=== PATIENT | female | born 1970 | race Caucasian/White ===

== ENCOUNTER 2016-07-14 17:19 | Emergency (ER) | payer MEDICAID ==
[~2016-07-14] VITALS: Ht 162.6 cm; Wt 79.8 kg
[2016-07-14 17:23] VITALS: Ht 162.6 cm; Wt 79.8 kg
[2016-07-14 18:40] LABS: URINE BLOOD (Dip) POC Negative (NEGATIVE)
[2016-07-14] MEDS ORDERED: KETOROLAC 30 MG INJ IV STA (18:43)
[2016-07-14 19:00] LABS: ADD SCAN DIFF NO
[2016-07-14 19:03] LABS: BASOPHIL # 0.1 10^3/ul (0.0-0.1); BASOPHILS % 0.6 % (0.0-2.0); EOSINOPHILS # 0.2 10^3/ul (0.0-0.5); EOSINOPHILS % 1.8 % (0.0-7.0); HEMATOCRIT 39.1 % (37.0-47.0); LYMPHOCYTES # 2.4 10^3/ul (0.8-2.9); LYMPHOCYTES % 22.7 % (15.0-51.0); MEAN CORPUSCULAR HEMOGLOBIN 30.3 pg (29.0-33.0); MEAN CORPUSCULAR HGB CONC 33.2 g/dl (32.0-37.0); MEAN CORPUSCULAR VOLUME 91.1 fl (82.0-101.0); MEAN PLATELET VOLUME 10.5 fl (7.4-10.4); MONOCYTE # 0.8 10^3/ul (0.3-0.9); MONOCYTES % 7.3 % (0.0-11.0); NEUTROPHIL # 7.2 10^3/ul (1.6-7.5); NEUTROPHILS % 67.2 % (39.0-77.0); PLATELET COUNT 293 10^3/UL (140-415); RED BLOOD COUNT 4.29 10^6/ul (4.20-5.40); RED CELL DISTRIBUTION WIDTH 13.6 % (11.5-14.5); WHITE BLOOD COUNT 10.6 10^3/ul (4.8-10.8)
[2016-07-14 19:07] LABS: ADD UMIC NO; URINE BILIRUBIN (Dip) NEGATIVE (NEGATIVE); URINE BLOOD (Dip) NEGATIVE (NEGATIVE); URINE COLOR LT. YELLOW (YELLOW); URINE GLUCOSE (Dip) NEGATIVE (NEGATIVE); URINE KETONES (Dip) NEGATIVE (NEGATIVE); URINE LEUKOCYTE ESTERASE (Dip) NEGATIVE (NEGATIVE); URINE NITRITE (Dip) NEGATIVE (NEGATIVE); URINE TOTAL PROTEIN (Dip) NEGATIVE (NEGATIVE); URINE UROBILINOGEN (Dip) 0.2 E.U./dL (0.1-1.0)
[2016-07-14 19:13] LABS: ALBUMIN 4.2 g/dl (3.3-4.9)
[2016-07-14 19:14] LABS: POTASSIUM 3.9 mmol/L (3.5-5.1)
[2016-07-14 19:16] LABS: ALBUMIN/GLOBULIN RATIO 1.16; BILIRUBIN,INDIRECT 0.3 mg/dl (0-1.1); BILIRUBIN,TOTAL 0.3 mg/dl (0.2-1.3); CREATININE 0.6 mg/dl (0.44-1.00); TOTAL PROTEIN 7.8 g/dl (6.1-8.1)
[2016-07-14 19:17] LABS: CALCIUM 8.8 mg/dl (8.4-10.2)
--- NOTE | 2016-07-14 19:31 | RADRPT ---
PROCEDURE: US Pelvis CLINICAL INDICATION: Left pelvic pain TECHNIQUE: Sonographic evaluation of the pelvis was performed utilizing both transabdominal and tr ansvaginal technique. Curved array transabdominal transducer technique as well as a high frequency endovaginal probe was utilized. Images were reviewed on the high-resolution PACS workstation. COMPARISON: No prior studies are available for comparison. FINDINGS: The uterus is normal in size, echogenicity, and morphology measuring about 9.0 x 5.1 x 5.0 cm. The uterus is anteverted in normal position. The endometrium is thin and normal measuring 9 mm in diam eter. The trilaminar stripe of the endometrium is preserved. No uterine myomas are visualized. The bilateral ovaries were not visualized. The bilateral adnexa are unremarkable. There is no signi ficant free fluid in the pelvis. No other incidental abnormality is identified. RPTAT: ZZ IMPRESSION: 1. Unremarkable appearance of the uterus. 2. Non-visualized bilateral ovaries. The bilateral adnexa are unremarkable. .Shira Salas MD, Date Time Electronically viewed and signed by .Shira Salas MD, on 07/14/2016 19:31 .T/
[2016-07-14] MEDS ORDERED: IBUP-1542 PO (20:06)
--- NOTE | 2016-07-15 00:14 | ERD ---
ER Documentation Chief Complaint Date/Time DATE: 07/15/16 TIME: 00:12 Chief Complaint ap x 3 days HPI 45-year-old female with no significant past medical history presents the ED complaining of abdominal pain that started 3 days ago. States that she was sent here by Dr. Teague for a pelvic ultrasound, blood work and urinalysis. Patient tried taking ibuprofen with slight relief of her pain. States that she feels tired and fatigued. Reports that she is nauseous but denies any vomiting or diarrhea. Denies any constipation, shortness of breath, chest pain. Denies any vaginal discharge, vaginal bleeding. Denies any dysuria, urgency, frequency , hematuria, flank pain. Reports that her last menses was on June 14, 2016. ROS All systems reviewed and are negative except as per history of present illness. Medications Home Meds Active Scripts Ibuprofen* (Motrin*) 600 Mg Tab, 600 MG PO Q6, #30 TAB Prov:RUI POLLOCK PA-C 07/14/16 PMhx/Soc Medical and Surgical Hx: pt denies Medical Hx, pt denies Surgical Hx Hx Cardiac Disorders: Yes (HTN) Hx Alcohol Use: No Hx Substance Use: No Hx Tobacco Use: No Smoking Status: Never smoker Physical Exam Vitals Vital Signs Date Time Temp Pulse Resp B/P Pulse Ox O2 Delivery O2 Flow Rate FiO2 07/14/16 17:23 98.3 74 18 132/61 99 Physical Exam Const: [id number], well-nourished. In no acute distress. Head: Atraumatic, normocephalic Eyes: Normal Conjunctiva without injection. No purulent discharge. ENT: Normal external ear, nose. Moist oropharynx without tonsillar exudates. Non -erythematous pharynx. Uvula midline. No drooling. No trismus. Neck: No cervical midline tenderness. Full range of motion. No meningismus. No cervical lymphadenopathy. No JVD. Resp: Clear to auscultation bilaterally. No wheezing, rhonchi, rales, or crackles. No accessory muscle use. No retractions. Cardio: Regular rate and rhythm. No murmurs, rubs or gallops. Abd: Soft, tender to palpation of the left lower abdomen, non distended. Normal bowel sounds. No palpable masses. No rebound tenderness. No guarding. Negative McBurney's point. Negative psoas sign. Negative obturator sign. : See exam in MDM. Skin: No petechiae or rashes Back: No midline tenderness. No CVA tenderness. Ext: No cyanosis, or edema. Neur: Awake and alert. Normal gait. Normal coordination. Psych: Normal Mood and Affect Result Diagram: 07/14/16 1851 07/14/16 1851 Results 24 hrs Laboratory Tests Test 07/14/16 18:37 07/14/16 18:39 07/14/16 18:51 Urine Color LT. YELLOW Urine Clarity CLEAR Urine pH 7.0 Urine Specific [place] 1.015 Urine Ketones NEGATIVE Urine Nitrite NEGATIVE Urine Bilirubin NEGATIVE Urine Urobilinogen 0.2 E.U./dL Urine Leukocyte Esterase NEGATIVE Urine Hemoglobin NEGATIVE Urine Glucose NEGATIVE% Urine Total Protein NEGATIVE Bedside Urine pH (LAB) 7.0 Bedside Urine Protein (LAB) Negative Bedside Urine Glucose (UA) Negative Bedside Urine Ketones (LAB) Negative Bedside Urine Blood Negative Bedside Urine Nitrite (LAB) Negative Bedside Urine Leukocyte Esterase (L Negative White Blood Count 10.610^3/ul Red Blood Count 4.2910^6/ul Hemoglobin 13.0g/dl Hematocrit 39.1% Mean Corpuscular Volume 91.1fl Mean Corpuscular Hemoglobin 30.3pg Mean Corpuscular Hemoglobin Concent 33.2g/dl Red Cell Distribution Width 13.6% Platelet Count 23887^3/UL Mean Platelet Volume 10.5fl Neutrophils % 67.2% Lymphocytes % 22.7% Monocytes % 7.3% Eosinophils % 1.8% Basophils % 0.6% Nucleated Red Blood Cells % 0.0/100WBC Neutrophils # 7.210^3/ul Lymphocytes # 2.410^3/ul Monocytes # 0.810^3/ul Eosinophils # 0.210^3/ul Basophils # 0.110^3/ul Nucleated Red Blood Cells # 0.010^3/ul Sodium Level 139mmol/L Potassium Level 3.9mmol/L Chloride Level 103mmol/L Carbon Dioxide Level 27mmol/L Anion Gap 13 Blood Urea Nitrogen 8mg/dl Creatinine 0.60mg/dl Glucose Level 101mg/dl Calcium Level 8.8mg/dl Total Bilirubin 0.3mg/dl Direct Bilirubin 0.00mg/dl Indirect Bilirubin 0.3mg/dl Aspartate Amino Transf (AST/SGOT) 44IU/L Alanine Aminotransferase (ALT/SGPT) 61IU/L Alkaline Phosphatase 88IU/L Total Protein 7.8g/dl Albumin 4.2g/dl Globulin 3.60g/dl Albumin/Globulin Ratio 1.16 Lipase 68U/L Current Medications Medications (Trade) Dose Ordered Sig/Jadiel Route PRN Reason Start Time Stop Time Status Last Admin Dose Admin Ketorolac Tromethamine (Toradol) 30 mg ONCE STAT IV 07/14/16 18:43 07/14/16 18:45 DC 07/14/16 19:18 Procedures/MDM This is a 45-year-old female with no significant past medical history presents the ED complaining of abdominal pain that started 3 days ago. Patient is afebrile and nontoxic-appearing. Patient has normal vital signs. Patient was further worked up with CBC, CMP, lipase, UA, urine , pelvic ultrasound. Patient's pain and symptoms have improved after treatment with Toradol. CBC: No leukocytosis. No e/o of systemic infection. No e/o anemia. CMP: No e/o severe acidosis, alkalosis, renal failure, diabetic ketoacidosis, liver disease Lipase within normal limits. Urine: No leukocyte esterase, no nitrites, no hematuria. Urine : Negative PROCEDURE: US Pelvis CLINICAL INDICATION: Left pelvic pain TECHNIQUE: Sonographic evaluation of the pelvis was performed utilizing both transabdominal and transvaginal technique. Curved array transabdominal transducer technique as well as a high frequency endovaginal probe was utilized. Images were reviewed on the high-resolution PACS workstation. COMPARISON: No prior studies are available for comparison. FINDINGS: The uterus is normal in size, echogenicity, and morphology measuring about 9.0 x 5.1 x 5.0 cm. The uterus is anteverted in normal position. The endometrium is thin and normal measuring 9 mm in diameter. The trilaminar stripe of the endometrium is preserved. No uterine myomas are visualized. The bilateral ovaries were not visualized. The bilateral adnexa are unremarkable. There is no significant free fluid in the pelvis. No other incidental abnormality is identified. RPTAT: ZZ IMPRESSION: 1. Unremarkable appearance of the uterus. 2. Non-visualized bilateral ovaries. The bilateral adnexa are unremarkable. No leukocytosis noted. There is low suspicion for diverticulitis patient has no diarrhea. Low suspicion for ovarian torsion as his pain has improved. A differential diagnosis considered includes but is not limited to gastritis, GERD , peptic ulcer disease, cholecystitis, choledocholithiasis, cholangitis, pancreatitis, appendicitis, bowel obstruction, ileus, volvulus, nephrolithiasis , pyelonephritis, hepatitis, perforated viscus, diverticulitis, abdominal hernia , acute abdomen, mesenteric ischemia or other emergent conditions. 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 Instructed patient to return to the ED sooner for any worsening symptoms. Patient's questions were answered. Patient understood and agreed with discharge plan. Patient discharged stable. Departure Diagnosis: Primary Impression: Abdominal pain, left lower quadrant Condition: Stable Patient Instructions: Abdominal Pain, Unknown Cause, (Female), Pelvic Pain, Unknown Cause Referrals: [facility] YOU HAVE RECEIVED A MEDICAL SCREENING EXAM AND THE RESULTS INDICATE THAT YOU DO NOT HAVE A CONDITION THAT REQUIRES URGENT TREATMENT IN THE EMERGENCY DEPARTMENT. FURTHER EVALUATION AND TREATMENT OF YOUR CONDITION CAN WAIT UNTIL YOU ARE SEEN IN YOUR DOCTORS OFFICE WITHIN THE NEXT 1-2 DAYS. IT IS YOUR RESPONSIBILITY TO MAKE AN APPOINTMENT FOR FOLOW-UP CARE. IF YOU HAVE A PRIMARY DOCTOR --you should call your primary doctor and schedule an appointment IF YOU DO NOT HAVE A PRIMARY DOCTOR YOU CAN CALL OUR PHYSICIAN REFERRAL HOTLINE AT IF YOU CAN NOT AFFORD TO SEE A PHYSICIAN YOU CAN CHOSE FROM THE FOLLOWING [facility] CLINICS [facility] [address] [facility]. [facility] [address] [facility] [address] [facility] [facility] [facility] [address] [facility] [facility] [address] [facility] [facility]. [address] [facility]. [facility] YOU HAVE RECEIVED A MEDICAL SCREENING EXAM AND THE RESULTS INDICATE THAT YOU DO NOT HAVE A CONDITION THAT REQUIRES URGENT TREATMENT IN THE EMERGENCY DEPARTMENT. FURTHER EVALUATION AND TREATMENT OF YOUR CONDITION CAN WAIT UNTIL YOU ARE SEEN IN YOUR DOCTORS OFFICE WITHIN THE NEXT 1-2 DAYS. IT IS YOUR RESPONSIBILITY TO MAKE AN APPOINTMENT FOR FOLOW-UP CARE. IF YOU HAVE A PRIMARY DOCTOR --you should call your primary doctor and schedule and appointment IF YOU DO NOT HAVE A PRIMARY DOCTOR YOU CAN CALL OUR PHYSICIAN REFERRAL HOTLINE AT . IF YOU CAN NOT AFFORD TO SEE A PHYSICIAN YOU CAN CHOSE FROM THE FOLLOWING [facility] INSTITUTIONS: [facility] [address] [place] [address] [facility] [address] [place] [address] [facility] [address] [place] [address] [facility] URGENT CARE/SPECIALTIES Additional Instructions: Specialist:Usted tiene jorge condicin mdica que requiere que rosa a un especialista dentro de los prximos 1-2 vizcaino.POR FAVOR,CON MULTANI SEGUIMIENTO DE PRIMARIA PHSICIAN refferal. SI USTED NO TIENE UN MDICO GENERAL Y / O USTED NO PUEDE PAGAR kathy a un mdico,los siguientes lundberg RECURSOS sido suministrado a usted. ES MULTANI RESPONSABILIDAD PARA SER VISTOS POR EL ESPECIALISTA: RUI POLLOCK PA-C Jul 15, 2016 00:14
== END 2016-07-14 20:14 | disposition home or self-care (01) ==
LOC: FTE 17:19
DX: R10.32 Left lower quadrant pain (principal); I10 Essential (primary) hypertension; R10.2 Pelvic and perineal pain
CPT/HCPCS: 36415; 76830; 76856; 80053; 81003; 83690; 85025; 96374; J1885; Z7502

== ENCOUNTER 2017-02-24 17:00 | Emergency (ER) | END 2017-02-24 20:13 | disposition home or self-care (01) | DX: M54.42 Lumbago with sciatica, left side (principal); I10 Essential (primary) hypertension | CPT/HCPCS: 72100; 81001; 96372; 99284; J1885 ==